=== PATIENT | female | born 1945 | race Caucasian/White ===

== ENCOUNTER → 2020-09-28 | Day surgery (SDC) | payer MEDICARE ==
[~2020-09-28] MED LIST: DESVENLAFAXINE100 MG PO; LEVOTHYROXINE100 MC2 PO; OZEMPIC1 MG/0.71 SC; PHENERGAN 25 MG25 M1 PO; PREDNISONE20 MG PO; PROTONIX40 MG PO; REQUIP3 MG PO; SINGULAIR10 MG PO; ST. JOSEPH ASPI81 M1 PO; TOPROL XL 25 MG25 MG PO; VITAMIN D350 MC3 PO; Voltaren Gel 1 % TOP; XYZAL5 MG PO
== END | disposition home or self-care (01) ==
LOC: OR 05:47
DX: K57.30 Diverticulosis of large intestine without perforation or abscess without bleeding (principal); K29.50 Unspecified chronic gastritis without bleeding; K31.9 Disease of stomach and duodenum, unspecified; K44.9 Diaphragmatic hernia without obstruction or gangrene; I10 Essential (primary) hypertension; E78.5 Hyperlipidemia, unspecified; E03.9 Hypothyroidism, unspecified; E11.9 Type 2 diabetes mellitus without complications; F41.9 Anxiety disorder, unspecified; F32.9 Major depressive disorder, single episode, unspecified; F11.90 Opioid use, unspecified, uncomplicated; K21.9 Gastro-esophageal reflux disease without esophagitis; G25.81 Restless legs syndrome; E66.01 Morbid (severe) obesity due to excess calories; Z86.010 Personal history of colon polyps; Z80.0 Family history of malignant neoplasm of digestive organs; Z68.31 Body mass index [BMI] 31.0-31.9, adult; Z88.1 Allergy status to other antibiotic agents; Z88.8 Allergy status to other drugs, medicaments and biological substances; Z79.82 Long term (current) use of aspirin; Z79.84 Long term (current) use of oral hypoglycemic drugs; Z79.899 Other long term (current) drug therapy
CPT/HCPCS: 82962; J2001; J2704; J7030

== ENCOUNTER → 2020-10-08 | Outpatient (CLI) | payer MEDICARE | LOC: MAMO 09-20 10:30 | DX: Z12.31 Encounter for screening mammogram for malignant neoplasm of breast (principal) | CPT/HCPCS: 77063; 77067 ==

== ENCOUNTER → 2020-10-14 | Outpatient (CLI) | payer MEDICARE | LOC: US 13:19 | DX: R92.8 Other abnormal and inconclusive findings on diagnostic imaging of breast (principal); N63.23 Unspecified lump in the left breast, lower outer quadrant | CPT/HCPCS: 76641-LT ==

== ENCOUNTER 2020-11-18 07:02 | Emergency (ER) | payer MEDICARE ==
[~2020-11-18 07:02] MED LIST changes: -PHENERGAN 25 MG25 M1 PO; -PREDNISONE20 MG PO
[2020-11-18 08:06] LABS: BUN/CREATININE RATIO 19 (0-10)
[2020-11-18 08:17] LABS: HEMOGLOBIN 13.9 gm/dl (12.3-15.3); RED BLOOD COUNT 4.71 M/UL (4.00-5.10); WHITE BLOOD COUNT 11.6 K/UL (4.5-11.0)
[2020-11-18] MEDS ORDERED: PHENERGAN 25 MG25 M1 PO (09:52)
== END 2020-11-18 10:00 | disposition home or self-care (01) ==
LOC: ER1 07:02
PROVIDERS: Emergency Medicine
DX: L50.0 Allergic urticaria (principal); I10 Essential (primary) hypertension; E11.9 Type 2 diabetes mellitus without complications; Z85.3 Personal history of malignant neoplasm of breast
CPT/HCPCS: 80053; 85025; 96374; 96375; 99283; J1200; J2550; J2930

== ENCOUNTER 2020-11-19 19:46 | Emergency (ER) | payer MEDICARE ==
[~2020-11-19 19:46] MED LIST changes: +PHENERGAN 25 MG25 M1 PO
[2020-11-20] MEDS ORDERED: PREDNISONE20 MG PO (02:45)
== END 2020-11-19 20:38 | disposition left against medical advice (07) ==
LOC: ER1 19:46
DX: Z53.21 Procedure and treatment not carried out due to patient leaving prior to being seen by health care provider (principal)

== ENCOUNTER 2020-11-20 02:09 | Emergency (ER) | payer MEDICARE ==
[2020-11-20] MEDS ORDERED: PREDNISONE20 MG PO (02:45)
== END 2020-11-20 03:25 | disposition home or self-care (01) ==
LOC: ER1 02:09
DX: L50.0 Allergic urticaria (principal); T38.3X5A Adverse effect of insulin and oral hypoglycemic [antidiabetic] drugs, initial encounter; E11.9 Type 2 diabetes mellitus without complications; Z85.3 Personal history of malignant neoplasm of breast
CPT/HCPCS: 96372; 99283; J2930

== ENCOUNTER → 2020-12-27 | Outpatient (CLI) | payer MEDICARE ==
[~2020-12-27] MED LIST changes: +PREDNISONE20 MG PO
== END ==
LOC: KOH-I 14:11
DX: R06.02 Shortness of breath (principal); R91.8 Other nonspecific abnormal finding of lung field; J98.4 Other disorders of lung
CPT/HCPCS: 71046

== ENCOUNTER → 2020-12-28 | Outpatient (CLI) | payer MEDICARE | LOC: CT 11:45 | DX: R06.02 Shortness of breath (principal); R93.89 Abnormal findings on diagnostic imaging of other specified body structures; R91.8 Other nonspecific abnormal finding of lung field | CPT/HCPCS: 71275; Q9967 ==

== ENCOUNTER → 2021-01-19 | Outpatient (CLI) | payer MEDICARE | LOC: KOH-I 08:56 | DX: C50.412 Malignant neoplasm of upper-outer quadrant of left female breast (principal); G62.0 Drug-induced polyneuropathy; R21 Rash and other nonspecific skin eruption; Z80.41 Family history of malignant neoplasm of ovary | CPT/HCPCS: 71250 ==